=== PATIENT | female | born 1940 | race Caucasian/White ===

== ENCOUNTER 2017-11-27 09:57 | Day surgery (SDC) | payer BC, MEDICARE ==
--- NOTE | 2017-11-27 07:44 | History and Physical Report ---
DATE: 11/26/2017. CHIEF COMPLAINT AND HISTORY OF CHIEF COMPLAINT: This patient presents with a history of a postlaminectomy radiculitis. Due to the failure of all therapy, the patient presents today for a spinal opioid infusion trial with hydromorphone. The diagnostics do confirm decompression laminectomy at 3-4 and 4-5. PAST MEDICAL HISTORY: Hypothyroidism, hypertension. PAST SURGICAL HISTORY: Lumbar spinal surgery, peripheral vascular surgery. MEDICATIONS ON ADMISSION: List to be provided. ALLERGIES: To be provided. REVIEW OF SYSTEMS: The patient seems appropriate and in no acute distress. The remainder of the systems review shows glasses, reflux esophagitis, degenerative arthritis. SOCIAL HISTORY: Caffeine, cigarette smoking, social alcohol. FAMILY HISTORY: Thyroid disease, coronary artery disease, cancer. PHYSICAL EXAMINATION: General: Height and weight are not available. Vital Signs: Not available. HEENT: Within normal limits. Lungs: Clear. Heart: Regular rate and rhythm. Abdomen: Nontender. Musculoskeletal: Examination of the musculoskeletal system shows diffuse tenderness throughout the lumbar spine and an adjacent laminectomy scar. Range of motion does produce pain moving into both legs and down the lower extremities. Sensory field evaluation in the lower extremities shows pain across what could be a 4-5 and a 5-1 pattern. There are no obvious deficits. Motor functionality seems to be intact. There is a mild generalized weakness in both lower extremities across what could be an L4-L5 pattern. Ambulation: No assistive device utilized. Neurologic: Cranial nerves are intact. IMPRESSION: 1. POST LUMBAR LAMINECTOMY SYNDROME, ICD-10 CODE M96.1. 2. LUMBAR RADICULITIS, ICD-10 CODE M54.16 AND M54.17. PLAN: This patient is here for an implanted spinal catheter infusion trial with hydromorphone. The patient understands the surgical procedure will involve implanting a spinal catheter which will help us reduce the incidence of spinal headaches as well as reduce the number of instrumentations placed into the spinal canal. This will reduce the risk of needle penetration. We will interface the implanted catheter with the external pump and infuse over a 14- day trial period. During this 14-day trial period, three possible increases will be scheduled if necessary. The potential risks, side effects, and complications have all been carefully reviewed and discussed. Information provided through the bias cutter helper has also been reviewed and discussed. All questions were answered. The patient understands and has consented. We will consider the procedure to be outpatient; although an overnight stay will be evaluated. JOB NUMBER: [id number] cc: Isaias Todd
[~2017-11-27 09:57] MED LIST: ACETAMINOPHEN 1,000 MG/100 ML BTL IV ONE; CLINDAMYCIN 600MG/50ML PREMIX 600 MG/50 ML BAG IVPB ONE; FAMOTIDINE 20MG TABLET PO ONE; HYDROMORPHONE PF 2MG/ML AMP 0.008 MG in 0.9 % SODIUM CHLORIDE 10ML VIA 0.996 ML IV ONE; HYDROMORPHONE PF 2MG/ML AMP 4 MG in 0.9 % SODIUM CHLORIDE 500ML 498 ML IV ONE; MECLIZINE 25 MG TABLET PO ONE; METOCLOPRAMIDE 10 MG TABLET PO ONE
[2017-11-27] MEDS ORDERED: FENTANYL PF 100MCG/2ML VIAL IV ONE (09:58)
[2017-11-27] MEDS ORDERED: MIDAZOLAM HCL 2MG/2ML VIAL IV ONE (09:58)
[2017-11-27] MEDS ORDERED: BUPIVACAINE 0.5% W/EPI MPF 30 ML VIAL IVP ONE (09:58)
[2017-11-27] MEDS ORDERED: HYDROMORPHONE HCL 2 MG/ML VIAL IV ONE (09:58)
[2017-11-27] MEDS ORDERED: LIDOCAINE 1% W/EPI 1:200,000 MPF 30ML SQ ONE (09:58)
[2017-11-27] MEDS ORDERED: AL HYDROX/MAG HYDROX 30ML UD PO PRN (15:05)
[2017-11-27] MEDS ORDERED: METOCLOPRAMIDE 10 MG TABLET PO PRN (15:05)
[2017-11-27] MEDS ORDERED: ACETAMINOPHEN 325 MG TAB PO PRN ×2 (15:05)
[2017-11-27] MEDS ORDERED: DIPHENHYDRAMINE HCL IV 50 MG/ML VIAL IVP PRN ×2 (15:05)
[2017-11-27] MEDS ORDERED: DIPHENHYDRAMINE HCL 25 MG CAPSULE PO PRN ×2 (15:05)
[2017-11-27] MEDS ORDERED: HYDROCODONE/APAP 7.5/325MG TABLET PO PRN ×2 (15:05)
[2017-11-27] MEDS ORDERED: SENNOSIDES/DOCUSATE SODIUM UD CAPSULE PO PRN ×2 (15:05)
[2017-11-27] MEDS ORDERED: METOCLOPRAMIDE HCL 10 MG/2 ML VIAL IVP PRN (15:05)
[2017-11-27] MEDS ORDERED: HYDROMORPHONE HCL 2 MG/ML VIAL IM PRN (15:05)
[2017-11-27] MEDS ORDERED: NALOXONE 0.4 MG/1 ML VIAL IVP PRN (15:05)
[2017-11-27] MEDS ORDERED: OXYCODONE/APAP 10MG-325MG TABLET PO PRN (15:05)
[2017-11-27] MEDS ORDERED: TEMAZEPAM 15 MG CAPSULE PO PRN ×2 (15:05)
[2017-11-27] MEDS ORDERED: HYDROMORPHONE HCL 1 MG/ML SYRINGE IM PRN (15:05)
--- NOTE | 2017-11-27 17:01 | Operative Note - Ferro ---
DATE OF SURGERY: 11/27/17 PREOPERATIVE DIAGNOSES: 1. POST LUMBAR LAMINECTOMY SYNDROME, ICD-10 CODE = M96.1. 2. LUMBAR RADICULITIS, ICD-10 CODE = M54.16 AND M54.17. OPERATION: 1. FLUOROSCOPICALLY-GUIDED ACCESS SPINAL SPACE AT L3-4, PLACEMENT OF THIN- WALLED SPINAL CATHETER POSITION T11. 2. DIAGNOSTIC MYELOGRAPHY WITH RADIOLOGIC SUPERVISION AND INTERPRETATION. 3. SPINAL OPIOID BOLUS HYDROMORPHONE AT 0.002 MG. 4. INCISION, SUBCUTANEOUS DISSECTION, AND ANCHORING OF SPINAL CATHETER TO SUPRASPINOUS FASCIA WITH ANCHOR DEVICE AND NONABSORBABLE SUTURE. 5. INCISION, SUBCUTANEOUS DISSECTION, AND CREATION OF SUBCUTANEOUS POUCH, LEFT POSTERIOR GLUTEAL MARGIN FOR PLACEMENT EVENTUALLY OF PUMP, FORMATION SUBCUTANEOUS POUCH. 6. TUNNELING MIDLINE POUCH TO SUBCUTANEOUS POUCH, LEFT FLANK, SPINAL CATHETER. INTERFACE SPINAL CATHETER TO SECOND CATHETER COMPONENT BY WAY OF A CONNECTOR. 7. TUNNELING SECONDARY CATHETER COMPONENT 6 CM SUPERIOR EXITING SKIN. INTERFACE EXTERNAL PUMP SET TO DELIVER HYDROMORPHONE AT 0.06 MG PER DAY. 7. CLOSURE OF MIDLINE INCISION VICRYL FOR FASCIA, SUBCUTICULAR VICRYL FOR SKIN. CLOSURE OF LEFT POUCH WITH NYLON SUTURE. 8. EPIDURAL BLOOD PATCH AT L5-S1, 20 ML AUTOLOGOUS BLOOD DRAWN STERILE TECHNIQUE LEFT ANTECUBITAL. SURGEON: SENIA CHUNG D.O. ANESTHESIA: LOCAL SEDATION. ANESTHESIA PROVIDER: BENIGNO CHAVARRIA CRNA. INDICATION: This patient presents with a history of intractable post laminectomy radiculitis. Due to the failure of all therapy, she is here for a trial of spinal opioids using an implanted catheter technique and Hydromorphone. We will determine if this is successful then a permanent system would be of value in her pain control. PROCEDURE: Intravenous line, vital sign monitoring, IV sedation, prepped and draped in sterile technique. Patient position prone. Sterile technique and under imaging with local for infiltration, the spinal interspace at L3-4 was marked and infiltrated then a 20-gauge spinal needle beveled with a long axis in a paramedian approach was used to gain entry into the space. This was accomplished under AP and lateral imaging. The needle penetration into the spinal space with the lateral image. CSF flow through the needle. Thin-walled spinal catheter was advanced slowly through the needle on AP and lateral imaging and positioned at T12. CSF flow was noted through the catheter. The catheter was clamped to stop CSF leak. The skin above and below the needle infiltrated, incision made, and subcutaneous dissection was conducted to the supraspinous fascia. The needle was removed after a pursestring was placed to limit CSF leak. The catheter was anchored to the supraspinous fascia with an anchoring device and nonabsorbable suture. The catheter was then clamped. CSF was still noted coming through the catheter. With the catheter anchored, contrast injected through the catheter. The resulting myelogram with radiologic supervision and interpretation showed the tip of the catheter straight, linear, midline. Contrast flow at T12 with appropriate flow characteristics identified confirming functionality and patency. A bolus of Hydromorphone 0.002 mg given into the spinal space. The catheter was again clamped to stop CSF leak. There was CSF noted through the catheter at that point. During the contrast injection , there was no pain noted on the patient. There was no abnormal flow characteristics identified. At the left posterior gluteal margin, a site ultimately for the pump itself, skin infiltrated, incision made, and subcutaneous dissection was conducted to form a pouch of suitable size and depth. A tunneling tool was used to carry the spinal catheter into the gluteal margin pouch and then the spinal catheter was interfaced with the second catheter component by way of a connector. The second catheter component was tunneled 6 cm superior from this pouch exiting the skin. The external catheter was then interfaced with an external pump, which was set to deliver Hydromorphone at 0.06 mg per day. The midline incision was closed Vicryl for fascia and running subcuticular Vicryl for skin. The posterior pouch was closed with nylon suture. The L4-5 level could not be accessed. At L5-S1, an 18-gauge Tuohy needle with [id number] into the epidural space. Simultaneously, 20 mL of autologous blood drawn sterile technique from the left antecubital. This blood was used to perform after an epidural blood patch at this level. Needle removed. The dressings were reinforced. Sterile dressing was used to cover the catheter and all connections under sterile dressing. The external pump was running appropriately. She was showing no side-effects from the procedure or the sedation and transported to the Recovery Room with full functionality of all extremities and no complaints except incisional pain. She was monitored until stable and will be kept flat for four hours, slowly elevated for one while on the Floor, while monitoring. She will be kept overnight for observation and discharged in the morning. DISCHARGE INSTRUCTIONS IN THE MORNIN. Sites remain clean and dry. No showering or bathing in any way that disrupts dressing. If it happens, contact the clinic. 2. Standard medications resumed including Levaquin, the antibiotic, 500 mg once a day for 14 days. 3. The trial will run 14 days. During this period of time, three increases will be scheduled. The first increase within the next three days. She was offered a prescription for incisional pain. had indicated she had Tylenol #3 at home that she tolerated and she will use that. We will evaluate when she comes in for the first increase. All other instructions provided. Monitoring her side- effects including respiratory depression, nausea, vomiting, constipation, urinary retention, lightheadedness, or rash have all been discussed relative to spinal opioids. All other instructions provided. She will be contacted by the office for the first increase when at home. cc: Dr. Camacho JOB NUMBER: [id number] MTDD
[2017-11-27] MEDS: GLIPIZIDE 5 MG TABLET PO SCH (18:38)
[2017-11-27] MEDS: PATIENT OWN MED: PANTOPRAZOLE 40 MG PO SCH (18:38)
[2017-11-27] MEDS: CLINDAMYCIN 600MG/50ML PREMIX 600 MG/50 ML BAG IVPB SCH (20:12)
[2017-11-27] MEDS: RINGERS SOLUTION,LACTATED 1,000 ML IV SCH ×2 (21:49→23:09)
[2017-11-27] MEDS ORDERED: ROSUVASTATIN 10 MG PO SCH (22:00)
[2017-11-28] MEDS: OXYCODONE/APAP 10MG-325MG TABLET PO PRN ×2 (03:02→09:32)
[2017-11-28] MEDS: CLINDAMYCIN 600MG/50ML PREMIX 600 MG/50 ML BAG IVPB SCH (04:56)
[2017-11-28] MEDS: PATIENT OWN MED: PANTOPRAZOLE 40 MG PO SCH (06:59)
[2017-11-28] MEDS ORDERED: SYNTHROID 100 MCG PO SCH (07:00)
[2017-11-28] MEDS: GLIPIZIDE 5 MG TABLET PO SCH (08:17)
[2017-11-28] MEDS ORDERED: RAMIPRIL 10 MG PO SCH (10:00)
[2017-11-28] MEDS ORDERED: PATIENT OWN MED: DULOXETINE 30 MG PO SCH (10:00)
--- NOTE | 2017-11-28 13:09 | RADIOLOGY REPORT ---
EXAM: THORACOLUMBAR SPINE, ONE VIEW HISTORY: PAIN PUMP TRIAL. TECHNIQUE: A single AP view of the spine is obtained portably including the lower thoracic and mid to upper lumbar portions. Comparison: Same day intraoperative images of the spine. FINDINGS: There is normal bone mineralization. Multilevel degenerative disk/ end plate changes are present. No acute fracture nor destructive bone lesion. There is an intraspinal catheter in place appearing to enter the spinal canal at the L3-L4 level with the catheter tip projecting at the T12 level. Ventral wall hernia repair changes are noted at the right mid abdominal level. IMPRESSION: INTRASPINAL CATHETER IN PLACE APPEARING TO ENTER THE CANAL AT THE L3-L4 LEVEL. CATHETER TIP AT THE T12 LEVEL. JOB NUMBER: [id number] MTDD
== END 2017-11-28 11:21 | disposition home or self-care (01) ==
LOC: SUR 09:57 → MEDSURG 13:14 → SUR 11-28 11:21
PROVIDERS: ATTEND Pain Medicine Interventional Pain Medicine
DX: M96.1 Postlaminectomy syndrome, not elsewhere classified (principal); M54.16 Radiculopathy, lumbar region; M54.17 Radiculopathy, lumbosacral region; E03.9 Hypothyroidism, unspecified; I10 Essential (primary) hypertension; I73.9 Peripheral vascular disease, unspecified; Z72.0 Tobacco use; E11.9 Type 2 diabetes mellitus without complications; Z79.84 Long term (current) use of oral hypoglycemic drugs; E78.00 Pure hypercholesterolemia, unspecified; Z79.01 Long term (current) use of anticoagulants
CPT/HCPCS: 36416; 82948; 72020; 94760; 62350; 00630; Q9967; J3010; J1170 ×2; J7040; J7120

== ENCOUNTER 2017-12-11 12:03 | Day surgery (SDC) | payer BC, MEDICARE ==
--- NOTE | 2017-12-11 09:44 | History and Physical - [facility] ---
CHIEF COMPLAINT/HISTORY OF CHIEF COMPLAINT: This patient presents with a history of post laminectomy radiculitis with an ongoing implanted spinal catheter infusion trial with Hydromorphone with success. She is here for a permanent implant. PAST MEDICAL HISTORY: Hypothyroidism and hypertension. PAST SURGICAL HISTORY: Lumbar spinal surgery and peripheral vascular surgery. MEDICATIONS ON ADMISSION: List to be provided. ALLERGIES: PENICILLIN, SULFA, HYDROCODONE, AND FENTANYL PATCHY. FAMILY/PSYCHOSOCIAL HISTORY: Social history - Positive for caffeine, smoking, and social alcohol. Family history - Thyroid disease, coronary artery disease and cancer. SYSTEMS REVIEW: The patient seems appropriate in no acute distress. The remainder of the systems review is positive for glasses, reflux and degenerative arthritis. PHYSICAL EXAMINATION: Height is 5'3", weight is 200 pounds. Vital signs are not available. HEENT: Within normal limits. LUNGS: Clear. HEART: Regular rate and rhythm. ABDOMEN: Nontender. MUSCULOSKELETAL: Examination of the musculoskeletal system shows the dressings for the implanted catheter trial are intact. Her primary pain pattern is low back with bilateral lower extremity. Her lower extremity functionality is intact. There is some mild sensory and motor deficits. Ambulation - No assistive device utilized. NEUROLOGIC: Cranial nerves are intact. IMPRESSION: 1. POST LUMBAR LAMINECTOMY SYNDROME, ICD-10 CODE M96.1. 2. LUMBAR RADICULITIS, ICD-10 CODE M54.16 AND M54.17. 3. IMPLANTED SPINAL CATHETER INFUSION TRIAL WITH HYDROMORPHONE. PLAN: The patient is here completing a spinal catheter trial for permanent implant. The risks, side effects, and complications have all been reviewed and discussed. She understands and agrees. The procedure will be outpatient. JOB NUMBER: [id number] [facility]
[~2017-12-11 12:03] MED LIST changes: +HYDROMORPHONE HCL 0.032 GM in 0.9 % SODIUM CHLORIDE 10ML VIA 40 ML IV ONE; +HYDROMORPHONE PF 2MG/ML AMP 0.004 MG in 0.9 % SODIUM CHLORIDE 10ML VIA 0.998 ML IV ONE; -HYDROMORPHONE PF 2MG/ML AMP 0.008 MG in 0.9 % SODIUM CHLORIDE 10ML VIA 0.996 ML IV ONE; -HYDROMORPHONE PF 2MG/ML AMP 4 MG in 0.9 % SODIUM CHLORIDE 500ML 498 ML IV ONE
[2017-12-11] MEDS ORDERED: PROPOFOL 10 MG/ML VIAL IV ONE (12:04)
[2017-12-11] MEDS ORDERED: BUPIVACAINE 0.5% W/EPI MPF 30 ML VIAL IVP ONE (12:04)
[2017-12-11] MEDS ORDERED: *PACU ONLY* KETAMINE HCL 10 MG/ML (20ML) VIAL IV ONE (12:04)
[2017-12-11] MEDS ORDERED: MIDAZOLAM HCL 2MG/2ML VIAL IV ONE (12:04)
[2017-12-11] MEDS ORDERED: FENTANYL PF 100MCG/2ML VIAL IV ONE (12:04)
[2017-12-11] MEDS ORDERED: LIDOCAINE 1% W/EPI 1:200,000 MPF 30ML SQ ONE (12:04)
--- NOTE | 2017-12-14 12:36 | Operative Note - [facility]ro ---
DATE OF SURGERY: 12/11/2017. PREOPERATIVE DIAGNOSIS: 1. POSTLUMBAR LAMINECTOMY SYNDROME, ICD-10 CODE M96.1. 2. LUMBAR RADICULOPATHY, ICD-10 CODE M54.16 AND M54.17. POSTOPERATIVE DIAGNOSIS: 1. POSTLUMBAR LAMINECTOMY SYNDROME, ICD-10 CODE M96.1. 2. LUMBAR RADICULOPATHY, ICD-10 CODE M54.16 AND M54.17. OPERATION: 1. INCISION, SUBCUTANEOUS DISSECTION, AND REMOVAL OF EXTERNALIZED SPINAL CATHETER. 2. INCISION, SUBCUTANEOUS DISSECTION, AND CREATION OF SUBCUTANEOUS POUCH AT LEFT POSTEROSUPERIOR GLUTEAL MARGIN FOR PLACEMENT OF PUMP IDENTIFIED MEDTRONIC 40 ML PROGRAMMABLE. 3. REVISION AND RESECTION OF INTERNAL SPINAL CATHETER INTERFACED WITH CONNECTOR TO SECOND CATHETER COMPONENT FOR INTERFACED REVISED CATHETER WITH CONNECTION TO 40 ML PROGRAMMABLE PUMP PREFILLED WITH HYDROMORPHONE 0.2 MG PER ML. 4. PLACEMENT OF PUMP INTO SUBCUTANEOUS POUCH, SECURING TO POSTERIOR FASCIA WITH NONABSORBABLE SUTURE AT FOUR POINTS USING USING PUMP EYELETS. 5. PLACEMENT OF CURVED 24-GAUGE DURAN NEEDLE INTO ACCESS PORT. ASPIRATION AND CLEARING SPINAL CATHETER OF OPIOID AND CEREBROSPINAL FLUID MIXTURE. 6. DIAGNOSTIC MYELOGRAPHY WITH RADIOLOGIC SUPERVISION AND INTERPRETATION. 7. PROGRAMMING OF PUMP TO DELIVER BY CONTINUOUS INFUSION HYDROMORPHONE AT 0.5 MG PER DAY. 8. CLOSURE OF INCISION WITH VICRYL FOR THE FASCIA AND RUNNING SUBCUTICULAR VICRYL FOR THE SKIN. DERMABOND CLOSURE APPROXIMATING EDGES OF THE WOUND. SURGEON: Jovany Powell D.O. ANESTHESIA: Local sedation. ANESTHESIA PROVIDER: Abner Joshi CRNA. INDICATION: This patient presents with a history of an intractable postlaminectomy radiculitis. She has an implanted spinal catheter infusion trial ongoing with hydromorphone with 50 to 75 percent pain control and improved functionality. She is here for implantation of a permanent system. DESCRIPTION OF PROCEDURE: Intravenous line, vital sign monitoring, and intravenous sedation by Anesthesia with the patient positioned prone. Prepped and draped with sterile technique. All of the external dressings were removed. Under imaging, the externalized catheter was identified. The left posterior gluteal margin pouch sutures were removed. The incision was opened and widened to accommodate a 40 mL programmable Medtronic pump. Within the pouch formed, the internal catheter interface to the external catheter was identified. The internal catheter component was clamped, and the catheter was cut. The external catheter was then removed, pulling away from the incision and out the skin. The pouch was widened to accommodate the pump, and then the internal catheter was resected and interfaced with a second catheter component by way of a connector. This second catheter component was then placed onto a new pump and positioned on the field; a 40 mL programmable prefilled with hydromorphone at 0.2 mg per mL. With the pump catheter interface in place, the pump was placed into the formed pouch and secured to the posterior fascia with nonabsorbable suture at four points using the pump eyelets. With the pump in the pouch, a 24-gauge Duran needle was inserted into the access port, and 1.0 mL of catheter contents was aspirated clearing the catheter of opioid and cerebrospinal fluid mixture. Contrast was then injected through the access port. The resulting myelogram with radiologic supervision and interpretation showed contrast moving through the internal components of the pump. Contrast was seen moving through the pump catheter connection with no kinks or leaks. The catheter tip at T12-L1 was identified with smooth and linear flow of myelogram characteristics identified. Patency and functionality were noted. With the pump in the pouch, the incision was then closed with Vicryl for the fascia and running subcuticular Vicryl for the skin. A Dermabond closure was used to approximate the edges of the wound. The pump was then programmed to deliver hydromorphone by continuous infusion at 0.5 mg a day. All alarm values were set. She was transported to the recovery room stable, showing no side effects from the procedure or the sedation. DISCHARGE INSTRUCTIONS: 1. The sites are to remain clean and dry. Although she may shower within 24 hours, she may not sit in water. 2. The office is to contact the patient at home in three to five days to set up an appointment to evaluate the sites in seven to ten days. During this period of time, activities shall stay low. No bend, lift, push, or pull. No driving until she is seen and evaluated. 3. Spinal opioid side effects including respiratory depression, nausea, vomiting, constipation, urinary retention, lightheadedness, and rash have all been discussed and reviewed. 4. All other instructions were provided and numbers to contact with problems were given. At that point she was prepared for discharge. JOB NUMBER: [id number] cc: Isaias Todd
== END 2017-12-11 16:12 | disposition home or self-care (01) ==
LOC: SUR 12:03
PROVIDERS: ATTEND Pain Medicine Interventional Pain Medicine
DX: M96.1 Postlaminectomy syndrome, not elsewhere classified (principal); M54.16 Radiculopathy, lumbar region; M54.17 Radiculopathy, lumbosacral region; E11.9 Type 2 diabetes mellitus without complications; Z79.84 Long term (current) use of oral hypoglycemic drugs; E78.00 Pure hypercholesterolemia, unspecified; I10 Essential (primary) hypertension; E03.9 Hypothyroidism, unspecified; Z79.01 Long term (current) use of anticoagulants; D64.9 Anemia, unspecified
CPT/HCPCS: 62367; 62350; 62362; 00630; Q9967; J3010; J1170; C1755